=== PATIENT | female | born 1940 | race Caucasian/White ===

== ENCOUNTER 2019-02-21 20:35 | Emergency (ER) | payer BC, MEDICARE ==
[~2019-02-21] VITALS: Ht 167.6 cm; Wt 65.3 kg
[~2019-02-21 20:35] MED LIST: ACET325T33 PO
[2019-02-21 20:43] VITALS: Ht 167.6 cm; Wt 65.3 kg
[2019-02-21 23:00] VITALS: BP 168/75; PULSE 67; RESP 18
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
== END 2019-02-21 23:01 | disposition home or self-care (01) ==
LOC: FTE 20:35
DX: M25.511 Pain in right shoulder (principal); I10 Essential (primary) hypertension
CPT/HCPCS: 71046